=== PATIENT | female | born 2000 | race Caucasian/White ===

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

== ENCOUNTER 2022-02-20 08:58 | Emergency (ER) | payer OTHER, SELFPAY ==
[2022-02-20 08:51] VITALS: BP 146/91; PULSE 91; RESP 18; TEMP 36.7; O2SAT 99; BMI 24.0
[2022-02-20 08:54] VITALS: BMI 24.0
[2022-02-20 09:00] VITALS: BP 146/88; PULSE 109; O2SAT 98
[2022-02-20 09:08] LABS: Coronavirus 19, PCR Not Detected (NotDetected); Influenza A, PCR Not Detected (NotDetected); Influenza B, PCR Not Detected (NotDetected)
--- NOTE | 2022-02-20 09:14 | PC.NURSE ---
ED MD AT BEDSIDE FOR EVALUATION
--- NOTE | 2022-02-20 09:18 | HMH.EDURI ---
ED Disposition Clinical Impression: Upper respiratory infection Qualifiers: URI type: unspecified URI Qualified Code(s): J06.9 - Acute upper respiratory infection, unspecified Disposition: Home, Self-Care Condition on Discharge: Good Instructions: DI for Acute Bronchitis Referrals: Provider,Referral, [Primary Care Provider] - - Critical Care Critical Care Time: No Attestation: On 02/20/22, the high probability of a clinically significant, sudden or life threatening deterioration of the following system(s) required my full and direct attention, intervention and personal management. The time I documented below is in addition to time spent performing reported procedures but includes the following listed in this critical care notation. Medical Decision Making - Medical Records Medical records reviewed: Yes: I reviewed the patient's medical records. - Jose Inquiry Pt receiving controlled substance: No Vital Signs: 02/20/22 08:51 Temperature 98.1 F Temperature Source Oral Pulse Rate [Radial] 91 H Respiratory Rate 18 Blood Pressure [Right Arm] 146/91 H Blood Pressure Mean [Right Arm] 109 Blood Pressure Source [Right Arm] Automatic Cuff Blood Pressure Position [Right Arm] Sitting 02 Sat by Pulse Oximetry 99 Oxygen Delivery Method Room Air Orders (Tests/Meds): ED MEDICATIONS Generic Name Dose Route Start Last Admin Trade Name Freq PRN Reason Stop Dose Admin Albuterol Sulfate 2 puff 02/20/22 09:17 Albuterol-Hfa 90mcg/Puff Inhaler 8gm IH 03/22/22 09:16 Q4HP PRN Shortness Of Breath Discontinued Medications Generic Name Dose Route Start Last Admin Trade Name Freq PRN Reason Stop Dose Admin Miscellaneous 1 unit 02/20/22 09:17 Aerochamber/Optihaler MC 02/20/22 09:18 ONCE ONE ORDERS Category Date Time Status Rapid PCR Covid and Flu A/B Stat Lab 02/20/22 08:35 Received Medical Decision Narrative: In review this is a 22-year-old female who presents with multiple complaints. Hemoglobin stable and nontoxic-appearing. Patient's physical exam is unremarkable. She does have some sniffling that she likely has some underlying congestion. With the fever and chills and her constitutional symptoms she is likely contracted COVID and/or another viral URI. She does have a history of asthma so we will give her a albuterol inhaler here to go home with. Recommended isolation until her COVID test comes back. At this point she is stable for discharge. Return precautions given. URI/Sore Throat HPI - General Chief Complaint: Upper Respiratory Infection Stated Complaint: cough Time Seen by Provider: 02/20/22 09:10 Mode of Arrival: EMS Limitations: No Limitations Description of Symptoms (Recalled from ER Triage Doc. by RN): BROUGHT IN VIA EMS, PT WITH COUGH, FEVER, RUNNY NOSE, SORE THORAT AND SNEEZING THAT BEGAN YESTERDAY - History of Present Illness HPI Narrative: Patient is a 22-year-old female who presents with fever, cough, sore throat. She said that her symptoms started yesterday. No one else in the house has been sick. She says that she has a history of asthma so she was concerned that she may have contracted COVID. She says she has been coughing quite a bit but denies any shortness of breath or chest pain. Denies any nausea. Denies any diarrhea or constipation. - Related Data Home Medications Medication Instructions Recorded Confirmed Valacyclovir HCl [Valacyclovir] 500 mg PO DAILY 08/19/21 12/02/21 Allergies Allergy/AdvReac Type Severity Reaction Status Date / Time No Known Allergies Allergy Verified 12/02/21 10:26 [facility] History - Hepatitis A Screen Attestation statement:: This patient has been screened for Hepatitis A risk factors. Medical History: Reports:: Asthma Other Surgeries: Yes: No Previous Surgery, Other. No: Amputation: No Fractures: No - Social History Smoking Status: Current every day smoker Tobacco Type
--- NOTE | 2022-02-20 09:19 | PC.NURSE ---
RESPIRATORY NOTIFIED OF ALBUTEROL INHALER ORDER ENTERED
--- NOTE | 2022-02-20 09:24 | PC.NURSE ---
RESPIRATORY AT BEDSIDE FOR INHALER INSTRUCTION
[2022-02-20 09:40] VITALS: BP 145/88; PULSE 90; RESP 20; TEMP 36.7; O2SAT 99
== END 2022-02-20 09:40 | disposition home or self-care (01) ==
PROVIDERS: Emergency Provider Student in an Organized Health Care Education/Training Program
DX: J06.9 Acute upper respiratory infection, unspecified (principal)
CPT/HCPCS: 94640; 99283; C9803; U0003; U0005

== ENCOUNTER 2025-01-29 08:04 | Emergency (ER) | payer OTHER, SELFPAY ==
[2025-01-29 08:13] VITALS: BP 147/98; PULSE 75; RESP 18; TEMP 36.6; O2SAT 99; BMI 23.6
[2025-01-29 08:15] LABS: Microscopic, Urine URINE MICROSCOPIC (MICROSCOPIC)
--- NOTE | 2025-01-29 08:15 | HMH.EDGENADL ---
Discharge Plan Disposition Patient Disposition: Home, Self-Care Prescriptions Prescriptions: New ibuprofen 800 mg tablet 800 mg PO Q8H 5 Days Qty: 15 0RF lidocaine 5 % adhesive patch,medicated 1 patch topical Q24H Qty: 15 0RF Rx Instructions: leave on most painful area for up to 12 hrs methocarbamol 500 mg tablet 500 mg PO Q8H PRN (Reason: Muscle spasm) Qty: 28 0RF No Action escitalopram oxalate 10 mg tablet 10 mg PO DAILY trazodone 50 mg tablet 50 mg PO DAILY cetirizine 10 mg tablet 10 mg PO DAILY albuterol sulfate [Ventolin HFA] 90 mcg/actuation HFA aerosol inhaler inhalation Patient Comments: INHALE 2 PUFFS BY MOUTH EVERY 6 HOURS NEEDED valacyclovir 500 mg tablet 500 mg PO DAILY Qty: 30 11RF Referrals Follow up/Referrals: Provider,Referral, MD [Primary Care Provider, Medical] - See instructions Activity Restrictions/Add. Instructions Additional Instructions/Restrictions: Follow-up with one of the primary care providers on the list provided to you regarding your chronic knee and back pain. Take ibuprofen, Robaxin and lidocaine patches as prescribed. You can also take Tylenol 1000 mg every 6 hours as needed to help with symptoms. If you develop any new or worsening symptoms, or if you become concerned for your health for any reason, return to the emergency department for evaluation. Clinical Impressions Clinical Impression: Chronic pain of both knees, Acute on chronic back pain Print Language Print Language: Albanian Discharge ED Provider: Juanjo Erwin Adult HPI General Chief complaint: PAIN Stated complaint: lower back pain, both knees pain Time Seen by Provider: 01/29/25 08:15 Mode of Arrival: Ambulatory Source of Information: Patient Limitations: No Limitations History of Present Illness HPI narrative: Trinh Truong is a 24y female with a history of asthma and chronic bilateral knee and upper and lower back pain after a fall off of a bridge when she was 17 years old who presents to the emergency department for complaints of worsening bilateral knee pain and upper and lower back pain. Patient states that she has had this pain ever since falling off of a bridge when she was 17 years old and sustained multiple fractures to both knees and muscle strain to the her back. She has tried Advil and multiple medications throughout the last several years and none seem to help significantly. She states that yesterday, she rode in a car for 7 hours and was immobile through most of that ride and her back pain and knee pain is worse. She states that it feels similar to her chronic pain just worse than normal. She denies any fever, shortness of breath, warmth to the joints, numbness, tingling, chest pain, swelling of either lower extremity, dysuria, hematuria, vaginal discharge. She does note that she is currently on her menstrual cycle. She states that she does not have a primary care physician and that her OB physician manages most of her chronic issues. She reports having a Nexplanon device in place. Related Data Home Medications ?Medication ?Instructions ?Recorded ?Confirmed escitalopram oxalate 10 mg tablet 10 mg PO DAILY 10/25/22 09/09/24 trazodone 50 mg tablet 50 mg PO DAILY 10/25/22 09/09/24 albuterol sulfate 90 mcg/actuation inhalation 09/09/24 09/09/24 aerosol inhaler (Ventolin HFA) cetirizine 10 mg tablet 10 mg PO DAILY 09/09/24 09/09/24 Previous Rx's ?Medication ?Instructions ?Recorded valacyclovir 500 mg tablet 500 mg PO DAILY Infection #30 tabs 08/07/22 ibuprofen 800 mg tablet 800 mg PO Q8H 5 days #15 tabs 01/29/25 lidocaine 5 % topical patch 1 patch topical Q24H #15 ea 01/29/25 methocarbamol 500 mg tablet 500 mg PO Q8H PRN Muscle spasm #28 01/29/25 tabs Allergies Allergy/AdvReac Type Severity Reaction Status Date / Time No Known Allergies Allergy Verified 09/09/24 09:50 [facility] Disclaimer: The information contained in this section may have been updated after the patient was seen, as this information can be updated by other users. Medical History Anemia Asthma Herpes simplex type 2 infection affecting , antepartum Surgical History Bowie teeth extracted Delivery by section Social History Smoking Status: Current every day smoker tobacco type: e-cigarettes alcohol intake: never substance use type: denies use and marijuana current occupational status: student Travel in the last 8 weeks?: None household members: foster family housing: house Have you lived/traveled outside US in past 30 days?: No Contact w/someone who lives/traveled outside US past 30 days?: No Exposure to someone with infectious disease in past 14 days?: No Do you have a fever (greater than 100.4 F or 38 C)?: No Have you tested positive for COVID-19?: No Exposed to someone with COVID-19 in past 14 days?: No Do you have a sore throat?: No Do you have a cough?: No Do you have any weakness?: No Do you have any diarrhea?: No Are you experiencing any unusual bleeding?: No Do you have any muscle aches/pain?: No Do you have any abdominal pain?: No Are you experiencing loss of taste or smell?: No Other Medical History Have you received the Flu Vaccine for this season: No Have you received the Pneumonia Vaccine: No ROS Obtained: Yes Systems reviewed as appropriate & no additional complaints except as documented Physical Exam General General appearance: alert and in no apparent distress Head Head exam: atraumatic Eye Eye exam: Present normal appearance ENT ENT exam: Present normal external ear exam Neck Neck exam: Present full ROM Chest Chest inspection: Present symmetric chest wall rise Respiratory Respiratory exam: Present normal lung sounds bilaterally; Absent respiratory distress, wheezes or stridor Cardiovascular Cardiovascular exam: Present regular rate and normal rhythm Abdominal Exam Abdominal exam: Present soft; Absent tenderness or guarding Extremities Exam Extremities exam: Present normal inspection, full ROM and other (No swelling or tenderness to the bilateral knees. Full range of motion of both knees.) Back Exam Back exam: Present normal inspection; Absent tenderness, CVA tenderness (R) or CVA tenderness (L) Neurological Exam Neurological exam: Present alert and oriented X3 Psychiatric Psychiatric exam: Present normal affect Skin Skin exam: Present warm and dry Medical Decision Making Medical Records Screening: Per USPSTF and CDC recommendations, given the prevalence of disease in our region, it is our hospital?s policy to screen for HIV and viral Hepatitis for all patients aged 18 and over and those with ongoing risk factors. Jose Inquiry Pt receiving controlled substance: No Vital Signs: 01/29/25 08:13 Temperature 97.9 F Temperature Source Oral Pulse Rate [Right] 75 Respiratory Rate 18 Blood Pressure [Right Arm] 147/98 H Blood Pressure Mean [Right Arm] 114 02 Sat by Pulse Oximetry 99 Oxygen Delivery Method Room Air Lab Data Lab Results 01/29/25 08:10: Urine Color Yellow, Urine Appearance Clear, Urine pH 5.5, Ur Specific [place] >= 1.030, Urine Protein Trace, Urine Glucose (UA) Negative, Urine Ketones Negative, Urine Blood 2+ A, Urine Nitrate Negative, Urine Bilirubin Negative, Urine Urobilinogen 0.2, Ur Leukocyte Esterase Negative Orders (Tests/Meds): ED MEDICATIONS Discontinued Medications Generic Name Dose Route Start Last Admin Trade Name Sally PRN Reason Stop Dose Admin Acetaminophen 1,000 mg 01/29/25 08:23 01/29/25 08:27 Acetaminophen 500mg Tab PO 01/29/25 08:24 1,000 mg ONCE ONE Administration Ibuprofen 800 mg 01/29/25 08:23 01/29/25 08:27 Ibuprofen 800 Mg Tablet PO 01/29/25 08:24 800 mg ONCE ONE Administration Lidocaine 1 each 01/29/25 08:23 01/29/25 08:28 Lidocaine 5% Transdermal Patch TD 01/29/25 08:24 1 each ONCE ONE Administration ORDERS Category Date Time Status UA [Urinalysis and Microscopic] Stat Lab 01/29/25 08:10 Received Medical Decision Narrative: Trinh Truong is a 24y female with a history of asthma and chronic bilateral knee and upper and lower back pain after a fall off of a bridge when she was 17 years old who presents to the emergency department for complaints of worsening bilateral knee pain and upper and lower back pain. Patient states that she has had this pain ever since falling off of a bridge when she was 17 years old and sustained multiple fractures to both knees and muscle strain to the her back. She has tried Advil and multiple medications throughout the last several years and none seem to help significantly. She states that yesterday, she rode in a car for 7 hours and was immobile through most of that ride and her back pain and knee pain is worse. She states that it feels similar to her chronic pain just worse than normal. She denies any fever, shortness of breath, warmth to the joints, numbness, tingling, chest pain, swelling of either lower extremity, dysuria, hematuria, vaginal discharge. She does note that she is currently on her menstrual cycle. She states that she does not have a primary care physician and that her OB physician manages most of her chronic issues. She reports having a Nexplanon device in place. On arrival, patient is mildly hypertensive with blood pressure 147/98, heart rate within normal limits, breathing comfortably on room air with oxygen saturation 99% SpO2. Physical exam, stated above, revealed overall well-appearing female in no distress. She is ambulatory. She has no tenderness to her knees with no swelling, warmth noted. No midline C/T/L-spine tenderness. No CVA tenderness bilaterally. Cardiopulmonary exam is unremarkable. The remainder of her physical exam is grossly unremarkable as well. Differential diagnosis includes, but is not limited to: Acute on chronic musculoskeletal pain, early arthritis, UTI. Low concern for septic joint or crystal arthropathy given lack of swelling or tenderness. Low concern for any traumatic injuries given patient has not had any trauma recently. X-ray imaging of the knees as well as CT imaging of the spine were considered to evaluate for any bony abnormality, however given chronic nature of patient's pain, it is felt that this is not indicated and the risk of radiation exposure outweighs the potential benefits. Patient states that this feels just like worsening of her chronic pain and given she has no additional symptoms, will treat pain with 800 g oral ibuprofen, 1 g of oral Tylenol, lidocaine patch. Will also obtain urine sample to rule out urinary tract infection, which revealed no evidence of UTI. Urine with 2+ blood, however given she is currently on her menstrual cycle, this is likely explained best by menstrual bleeding. Patient is currently driving and will send prescriptions for Robaxin, ibuprofen, lidocaine patches with instructions to take Tylenol at home as well. Will also give patient resources for follow-up with primary care physicians. This plan was discussed with her and she was in agreement with this plan. Patient remained stable throughout her entire ED visit was subsequently discharged. Critical Care Critical Care Time Critical Care Time: No
[2025-01-29 08:19] LABS: Color,Urine YELLOW (Yellow); Glucose,Urine (UA) Negative (Negative); Ketones,Urine Negative (Negative); Leukocyte Esterase,Urine Negative (Negative); PH,Urine 5.5 (5.0-8.5); Protein,Urine TRACE (Negative); Specific Gravity, Urine >= 1.030 (1.005-1.030); Urobilinogen,Urine 0.2 EU/dl (0.2)
[2025-01-29 08:24] LABS: Bilirubin,Urine Negative (Negative)
[2025-01-29] MEDS: ACETAMINOPHEN 500MG TAB 1000 MG PO (08:27)
[2025-01-29] MEDS: IBUPROFEN 800 MG TABLET PO (08:27)
[2025-01-29] MEDS: LIDOCAINE 5% TRANSDERMAL PATCH 1 EACH TD (08:28)
[2025-01-29 08:40] VITALS: BP 147/98; PULSE 76; RESP 18; TEMP 36.6; O2SAT 97
[2025-01-29 08:44] LABS: WBC,Urine Occasional #/hpf (0-3)
[2025-01-29 08:45] LABS: Bacteria,Urine Trace /lpf
== END 2025-01-29 08:42 | disposition home or self-care (01) ==
PROVIDERS: Emergency Provider Student in an Organized Health Care Education/Training Program
DX: M25.561 Pain in right knee (principal); M25.562 Pain in left knee; M54.50 Low back pain, unspecified; F17.210 Nicotine dependence, cigarettes, uncomplicated
CPT/HCPCS: 81001; 99283

== ENCOUNTER 2025-02-06 11:45 | Emergency (ER) | payer OTHER, SELFPAY ==
[2025-02-06 11:53] VITALS: BP 123/67; PULSE 103; RESP 19; TEMP 37; O2SAT 100; BMI 23.5
--- OUTSIDE RECORDS SUMMARY | 2025-02-06 11:55 | XMS_ITS | Clinical Summary ---
Author Organization [employer] [facility] Address [address] [place] [id number] Phone Care Team Providers Care Boat Hand Name Role Phone Haley Mccoy APRN Primary Care Physician [phone] Conditions or Problems Problem Name Problem Code Onset Date Status Entry Date Provider Comment Standard Description Annotate Family situation [id number] (SNOMED CT) 08/10 Active 08/10 Haley Mccoy APRN Family problems Sinusitis 60713239 (SNOMED CT) 08/10 Active 08/10 Haley Mccoy APRN Sinusitis Upper respiratory infection 40562430 (SNOMED CT) 09/26 Inactive 09/26 Beverly Haro APRN Upper respiratory infection NEED FOR PROPHYLACTIC IMMUNOTHERAPY 257943909 (SNOMED CT) 12/25 Inactive 12/25 Harper Ramirez APRN Prophylactic immunotherapy NEED FOR PROPHYLACTIC IMMUNOTHERAPY [id number] (SNOMED CT) 09/12 Inactive 09/12 Harper Ramirez APRN Prophylactic immunotherapy WELL CHILD EXAM 609242486 (SNOMED CT) 03/12 Inactive 03/12 Courtney Villarreal APRN Well child visit Medications Medication Instructions Start Date Stop Date Generic Name [facility] Provider AMOXICILLIN-POT CLAVULANATE 875-125 MG TABS TAKE ONE TAB TWICE DAILY AMOXICILLIN-POT CLAVULANATE [id number] Haley Mccoy APRN VENTOLIN HFA 108 (90 Base) MCG/ACT AERS TAKE 2 INHALATIONS 4 TIMES A DAY NEEDED FOR WHEEZING ALBUTEROL SULFATE [id number] Beverly Haro APRN FLONASE ALLERGY RELIEF 50 MCG/ACT SUSP USE 2 SPRAYS IN EACH NOSTRIL 1 TIME A DAY FLUTICASONE PROPIONATE [id number] Beverly Haro APRN ROBITUSSIN DM 100-10 MG/5ML ORAL SYRUP TAKE 5 ML BY MOUTH EVERY 6 HOURS NEEDED FOR COUGH DEXTROMETHORPHA N-GUAIFENESIN [id number] Beverly Haro APRN ZITHROMAX Z-KEYSHA 250 MG TABS TAKE 2 TABLETS BY MOUTH ON DAY 1 THEN 1 TABLET BY MOUTH DAILY FOR 4 DAYS (DAY 2-5) AZITHROMYCIN [id number] Beverly Haro APRN Medications Administered No information available. Allergies, Adverse Reactions, Alerts Observed no known allergies at Results No information available. Plan of Care Type Date Detail Pending order [facility] HPV Gardisil 3 dose schedule Pending order [facility] Hep A pediat maciej-adolescent dosage- 2 dose schedule Pending order IMADM THROUGH 18 YR [address] ROUTE 1ST VAC/TOXOID Pending order [facility] HPV Gardisil 3 dose schedule Pending order [facility] Varicella vi win[place] vaccine Pending order IMADM THROUGH 18 YR [address] ROUTE 1ST VAC/TOXOID Pending order Immunization(s) Ordered Pending order [facility] Hep A pediat maciej-adolescent dosage- 2 dose schedule Pending order IMADM THROUGH 18 YR [address] ROUTE 1ST VAC/TOXOID Pending order [facility] HPV Gardisil 3 dose schedule Pending order IMADM THROUGH 18 YR ANY ROUTE 1ST VAC/TOXOID Pending order [facility] TDaP age 7 y rs or older Pending order IMADM THROUGH 18 YR ANY ROUTE 1ST VAC/TOXOID Pending order IMADM THROUGH 18 YR ANY ROUTE EA ADDL VAC/TOXOID Pending order [facility] Meningococca l conjugate vaccine Pending order IMADM THROUGH 18 YR [address] R[address]TE 1ST VAC/TOXOID Pending order [facility] ; quantitative; bilateral 63839 Pending order Vision Screening ; quantitative; bilateral [id number] Procedures Code Procedure Name Date Entry Date [facility]-[id number] Medication Reconciliation SCT-[id number] Medication Reconciliation CPT-15749QHH VFC HPV Gardisil 3 dose schedule CPT-09003CRT VFC Hep A pediatric- adolescent dosage- 2 dose schedule CPT-56669 IMADM THROUGH 18YR ANY ROUTE 1ST VAC/TOXO ID CPT-93311KCA VFC HPV Gardisil 3 dose schedule CPT-04860WZX VFC Varicella virus vaccine CPT-86980 IMADM THROUGH 18YR ANY ROUTE 1ST VAC/TOXO ID IMMORDER Immunization(s) Ordered 2012 CPT-68593KXE VFC Hep A pediatric- adolescent dosage- 2 dose schedule CPT-63192 IMADM THROUGH 18YR ANY ROUTE 1ST VAC/TOXO ID CPT-09909LZM VFC HPV Gardisil 3 dose schedule CPT-26500 IMADM THROUGH 18YR ANY ROUTE 1ST VAC/TOXO ID CPT-67977OCY VFC TDaP age 7 yrs or older CPT-33261 IMADM THROUGH 18YR ANY ROUTE 1ST VAC/TOXO ID CPT-72351 IMADM THROUGH 18YR A [place] ROUTE EA ADDL VAC/TOXOID CPT-32621PPU VFC Meningococcal conjugate vaccine 03/12 CPT-89052 IMADM THROUGH 18YR ANY ROUTE 1ST VAC/TOXO ID CPT-72848 Audioscope -pure tone -air only 27330 201 10/04/13 CPT-08267 Audioscope -pure tone -air only 41611 201 10/04/13 Vital Signs Date Name Value Unit Description BMI (Body Mass Index) 23.91 kg/m2 Bod y Mass Index (Ratio) Body Temperature 98.4 [degF] temperat ure E&M Body Temperature 36.89 Lala temperat ure in centigrade E&M BP Diastolic 56 mm[Hg] blood pressu re, diastolic BP Systolic 90 mm[Hg] blood pressur e, systolic BSA (Body Surface Area) 1.46 b marylou surface area Heart Rate 86 /min pulse rate Height 58 [in_us] height E&M Height 147.32 cm height in cent imeters E&M Respiratory Rate 18 /min respirat ory rate E&M Weight Measured 51.82 kg weight in kilograms E&M Weight Measured 114 [lb_av] weight E& M Weight Measured 114 [lb_av] weight E& M Immunizations Vaccine Administration Date Standard Description CVX Co de Dose pneuped#4 109 Unknown pneuped#3 109 Unknown ipv #2 10 Unknown mmr #2 03 Unknown mmr #1 03 Unknown pneuped#2 109 Unknown ipv #4 10 Unknown ipv #3 10 Unknown ipv #1 10 Unknown pneumped1 133 Unknown hib #2 17 Unknown dtap #1 20 Unknown hib #1 17 Unknown dtap #3 20 Unknown dtap #5 20 Unknown hib #3 17 Unknown dtap #2 20 Unknown dtap #4 20 Unknown varicella#2 21 Unknown varicella#1 21 Unknown hepbvax#3 45 Unknown hpv #2 62 Unknown hpv #3 62 Unknown hpv #1 62 Unknown hepavax #2 85 Unknown hepbvax#2 45 Unknown hepavax #1 85 Unknown hepbvax#1 45 Unknown hpv #2 62 Unknown hpv #3 62 Unknown meningoc vax 32 Unknown tdap vax 115 0.0 meningoc vax 32 0.0 hpv num 2 62 Unknown hpv num 3 62 Unknown Advance Directives No information available.
[2025-02-06 11:58] VITALS: PULSE 103; RESP 19; O2SAT 100
[2025-02-06 12:12] LABS: Coronavirus 19, PCR Not Detected (NotDetected); Influenza A, PCR Not Detected (NotDetected); Influenza B, PCR Not Detected (NotDetected)
[2025-02-06] MEDS: DEXAMETHASONE 4MG TABLET 10 MG PO (12:15)
[2025-02-06 12:25] LABS: Strep Scrn Group A (Rapid) Negative (Negative)
--- NOTE | 2025-02-06 12:42 | [facility].EDGENADL ---
Discharge Plan Disposition Chief Complaint: Cough Prescriptions Prescriptions: No Action escitalopram oxalate 10 mg tablet 10 mg PO DAILY trazodone 50 mg tablet 50 mg PO DAILY cetirizine 10 mg tablet 10 mg PO DAILY albuterol sulfate [Ventolin HFA] 90 mcg/actuation HFA aerosol inhaler inhalation Patient Comments: INHALE 2 PUFFS BY MOUTH EVERY 6 HOURS NEEDED valacyclovir 500 mg tablet 500 mg PO DAILY Qty: 30 11RF ibuprofen 800 mg tablet 800 mg PO Q8H 5 Days Qty: 15 0RF lidocaine 5 % adhesive patch,medicated 1 patch topical Q24H Qty: 15 0RF Rx Instructions: leave on most painful area for up to 12 hrs methocarbamol 500 mg tablet 500 mg PO Q8H PRN (Reason: Muscle spasm) Qty: 28 0RF Referrals Follow up/Referrals: Cherrie Hancock MD [Primary Care Provider, Medical] - See instructions Instructions Patient Instructions: Cough Print Language Print Language: Slovenian Discharge ED Provider: Salomón Boo Adult HPI General Chief complaint: Cough Stated complaint: Sore Throat Time Seen by Provider: 02/06/25 11:55 Mode of Arrival: Ambulatory Source of Information: Patient Description of Symptoms (Recalled from ER Triage Doc. by RN): Patient presents to ED with c/o sorethroat and productive cough that started last night. Reports other family members have had similar symptoms as well. Denies chest pain, denies SOA. History of Present Illness HPI narrative: This is a 25-year-old female patient, with no significant past medical history or daily medications, who is presenting to the emergency department today for evaluation of a sore throat. The patient states that yesterday afternoon she began feeling under the weather and this morning she woke up with a sore throat and when looking in the mirror she recognized tonsillar exudates. She states that she is still able to tolerate oral intake without difficulty. She has noticed that her voice is more hoarse than usual. She has also noticed some anterior cervical lymphadenopathy. She is not experiencing chest pain or shortness of breath. She is not producing phlegm. She is not having any difficulty with lateral rotation of the neck and she is not experiencing headaches. Related Data Home Medications ?Medication ?Instructions ?Recorded ?Confirmed escitalopram oxalate 10 mg tablet 10 mg PO DAILY 10/25/22 09/09/24 trazodone 50 mg tablet 50 mg PO DAILY 10/25/22 09/09/24 albuterol sulfate 90 mcg/actuation inhalation 09/09/24 09/09/24 aerosol inhaler (Ventolin HFA) cetirizine 10 mg tablet 10 mg PO DAILY 09/09/24 09/09/24 Previous Rx's ?Medication ?Instructions ?Recorded valacyclovir 500 mg tablet 500 mg PO DAILY Infection #30 tabs 08/07/22 ibuprofen 800 mg tablet 800 mg PO Q8H 5 days #15 tabs 01/29/25 lidocaine 5 % topical patch 1 patch topical Q24H #15 ea 01/29/25 methocarbamol 500 mg tablet 500 mg PO Q8H PRN Muscle spasm #28 01/29/25 tabs Allergies Allergy/AdvReac Type Severity Reaction Status Date / Time No Known Allergies Allergy Verified 09/09/24 09:50 [facility] Disclaimer: The information contained in this section may have been updated after the patient was seen, as this information can be updated by other users. Medical History Anemia Asthma Herpes simplex type 2 infection affecting , antepartum Surgical History [place] teeth extracted Delivery by section Social History Smoking Status: Current every day smoker tobacco type: e-cigarettes alcohol intake: never substance use type: denies use and marijuana current occupational status: student Travel in the last 8 weeks?: None household members: foster family housing: house Have you lived/traveled outside [place] in past 30 days?: No Contact w/someone who lives/traveled outside [place] past 30 days?: No Exposure to someone with infectious disease in past 14 days?: No Do you have a fever (greater than 100.4 F or 38 C)?: No Have you tested positive for COVID-19?: No Exposed to someone with COVID-19 in past 14 days?: No Do you have a sore throat?: Yes Do you have a cough?: No Do you have any weakness?: No Do you have any diarrhea?: No Are you experiencing any unusual bleeding?: No Do you have any muscle aches/pain?: No Do you have any abdominal pain?: No Are you experiencing loss of taste or smell?: No Other Medical History Have you received the Flu Vaccine for this season: No Have you received the Pneumonia Vaccine: No ROS Obtained: Yes Systems reviewed as appropriate & no additional complaints except as documented Physical Exam General General appearance: alert and in no apparent distress Head Head exam: atraumatic and normocephalic Eye Eye exam: Present PERRL and EOMI Neck Neck exam: Present full ROM and trachea midline Respiratory Respiratory exam: Present normal lung sounds bilaterally; Absent respiratory distress Cardiovascular Cardiovascular exam: Present regular rate and normal rhythm Abdominal Exam Abdominal exam: Present soft; Absent tenderness Extremities Exam Extremities exam: Present normal inspection; Absent tenderness Back Exam Back exam: Absent vertebral tenderness Neurological Exam Neurological exam: Present alert and oriented X3 Skin Skin exam: Present warm and dry Medical Decision Making Medical Records Medical records reviewed: Yes I reviewed the patient's medical records. Screening: Per USPSTF and CDC recommendations, given the prevalence of disease in our region, it is our hospital?s policy to screen for HIV and viral Hepatitis for all patients aged 18 and over and those with ongoing risk factors. Jose Inquiry Pt receiving controlled substance: No Jose was queried for this patient: No Vital Signs: 02/06/25 11:53 02/06/25 11:58 Temperature 98.6 F Temperature Source Oral Pulse Rate 103 H Pulse Rate [Left] 103 H Respiratory Rate 19 19 Blood Pressure [Left Arm] 123/67 Blood Pressure Mean [Left Arm] 85 Blood Pressure Source [Left Arm] Automatic Cuff 02 Sat by Pulse Oximetry 100 100 Oxygen Delivery Method Room Air Room Air Lab Data Lab Results 02/06/25 11:51: Group A Strep Rapid Negative Orders (Tests/Meds): ED MEDICATIONS Discontinued Medications Generic Name Dose Route Start Last Admin Trade Name Freq PRN Reason Stop Dose Admin Dexamethasone 10 mg 02/06/25 12:12 02/06/25 12:15 Dexamethasone 4mg Tablet PO 02/06/25 12:13 10 mg ONCE ONE Administration ORDERS Category Date Time Status Rapid PCR Covid and Flu A/B Stat Lab 02/06/25 12:08 Received Strep Scrn Group A (Rapid) Stat Lab 02/06/25 11:51 Completed Strep Screen Confirmation Stat Micro 02/06/25 11:51 Received Medical Decision Narrative: In summary, this is a 25-year-old female patient who is previously healthy and presenting to the emergency department today for evaluation of a sore throat. This patient has no comorbidities that would complicate their medical management or care. On initial evaluation of the patient they were resting comfortably in no acute distress and nontoxic in appearance. They are hemodynamically stable, saturating well room air, and are neurologically intact. On examination of the patient she does have some anterior cervical lymphadenopathy. Her voice does sound hoarse. Her uvula is in the midline and her tonsils are symmetric in appearance. Tonsils do have exudates bilaterally. There is no asymmetry noted along the tonsillar pillars. She has no difficulty with lateral rotation of her neck. She does not have any tenderness of the posterior aspect of the neck. She is afebrile and overall very well-appearing. Heart and lungs are clear to auscultation bilaterally. Differential diagnosis includes streptococcal pharyngitis, viral pharyngitis, among others. I have a very low suspicion for peritonsillar abscess given my exam listed above. Due to the fact that she is not guarding her neck and she is not ill-appearing I have a low suspicion for more severe pathology such as retropharyngeal abscess. Workup was initiated with viral swabs as well as strep swabs. Labs personally interpreted by me demonstrate a negative strep screen. We have administered 10 mg of dexamethasone to the patient in the emergency department. On repeat reassessment she is resting comfortably and is in no acute distress. My suspicion is that this is likely a viral syndrome that will improve over the next few days. Patient knowledges understanding of this. Return precautions have been given. At this time all questions have been answered and all parties are agreeable with the decision to discharge home Critical Care Critical Care Time Critical Care Time: No
[2025-02-06 12:55] VITALS: BP 117/79; PULSE 88; RESP 19; TEMP 37; O2SAT 99
== END 2025-02-06 12:57 | disposition home or self-care (01) ==
PROVIDERS: Emergency Provider Student in an Organized Health Care Education/Training Program; PCP Internal Medicine
DX: J02.9 Acute pharyngitis, unspecified (principal); F17.290 Nicotine dependence, other tobacco product, uncomplicated
CPT/HCPCS: 87430; 87636; 99283; J8540